=== PATIENT | male | born 1975 | race Caucasian/White ===

== ENCOUNTER 2020-02-22 20:48 | Emergency (ER) | payer BC ==
[~2020-02-22] VITALS: Ht 188 cm; Wt 161.4 kg
[2020-02-22 21:00] VITALS: Ht 188 cm; Wt 161.4 kg
[2020-02-22] MEDS ORDERED: SYNTHROID25 MCG PO (21:02)
[2020-02-22 21:39] LABS: BASOPHILS 0.4 % (0-2); EOSINOPHILS 3.6 % (0-7); HEMATOCRIT 49.3 % (42.0-54.0); HEMOGLOBIN 16.1 g/dL (13.5-17.5); IMMATURE GRANULOCYTES 0.2 % (0-5); LYMPHOCYTES 31.7 % (15-50); MCH 29.9 pg (26.0-34.0); MCHC 32.7 g/dL (31.0-37.0); MCV 91.5 fL (80.0-100.0); MEAN PLATELET VOLUME 8.8 fL (7.4-10.4); MONOCYTES 10.9 % (2-11); NEUTROPHILS 53.2 % (40-80); PLATELET COUNT 197 10x3/uL (130-400); RBC 5.39 10x6/uL (4.20-6.10); RDW 13.6 % (11.5-14.5); WBC 9.5 10x3/uL (4.8-10.8)
[2020-02-22 21:48] LABS: APTT 30.5 SECONDS (22.8-39.4); INR 0.99 (0.85-1.17)
[2020-02-22 21:49] LABS: D-DIMER-QUANTITATIVE 0.72 ug/mLFEU (0.20-0.54)
[2020-02-22 21:52] LABS: CALC OSMOLALITY 274 mosm/kg (275-300); CALCIUM 9.3 mg/dL (8.5-10.1); CARBON DIOXIDE 34.9 mmol/L (21.0-32.0); CHLORIDE - SERUM 99 mmol/L (98-107); CREATININE - SERUM 1.6 mg/dL (0.6-1.3); GLUCOSE 118 mg/dL (74-106); POTASSIUM - SERUM 3.5 mmol/L (3.5-5.1); SODIUM 136 mmol/L (136-145); UREA NITROGEN 17 mg/dL (7-18); eGFR NON AFRICAN AMERICAN 50 mL/min (90-120)
[2020-02-22 22:08] LABS: ALBUMIN 4.3 g/dL (3.4-5.0); ALKALINE PHOSPHATASE 70 U/L (30-120); ALT (SGPT) 48 U/L (10-68); BILIRUBIN - TOTAL 0.59 mg/dL (0.2-1.3); CKMB 2.6 U/L (0.0-3.6); CREATINE KINASE 666 UL (21-232); MAGNESIUM - SERUM 2.1 mg/dL (1.8-2.4); PROTEIN - SERUM 8.1 g/dL (6.4-8.2); THYROID STIMULATING HORMONE 11.81 uIU/mL (0.36-3.74)
[2020-02-22 22:13] LABS: TROPONIN-I < 0.017 ng/mL (0.000-0.060)
[2020-02-23] MEDS ORDERED: NAPROSYN500 MG PO (00:31)
[2020-02-23] MEDS ORDERED: HYDROCODON-ACE1 EAC7 PO (00:31)
[2020-02-23 00:58] VITALS: BP 149/93
== END 2020-02-23 00:58 | disposition home or self-care (01) ==
LOC: D.ER 20:48
PROVIDERS: Family Medicine
DX: M66.0 Rupture of popliteal cyst (principal); E07.9 Disorder of thyroid, unspecified; I10 Essential (primary) hypertension; Z72.0 Tobacco use; M79.605 Pain in left leg; M79.604 Pain in right leg; R22.43 Localized swelling, mass and lump, lower limb, bilateral